=== PATIENT | female | born 1985 | race Two or more races ===

== ENCOUNTER 2024-07-28 15:30 | Emergency (ER) | payer MEDICAID, SELFPAY ==
[2024-07-28 15:42] VITALS: BP 147/92; PULSE 85; RESP 20; TEMP 37; O2SAT 98; BMI 23.8
--- NOTE | 2024-07-28 15:44 | ED.GENADULT ---
HPI - General Adult General Chief complaint: Headache Stated complaint: Migraine 2 weeks Time Seen by Provider: 07/28/24 19:52 Source: patient Mode of arrival: ambulatory Limitations: no limitations History of Present Illness ED Provider: amadeo RANDALL narrative: Patient's history of migraine headache been having headache for last 2 weeks localized to the left side of the head with light sensitivity and nausea trying to take ibuprofen/Excedrin without much relief Related Data Previous Rx's ?Medication ?Instructions ?Recorded jzkftnfixh-urpitjtacrdms-qzcgcdac 1 tab PO Q6H PRN haeadace #20 tabs 07/28/24 50 mg-325 mg-40 mg tablet ondansetron 4 mg disintegrating 4 mg PO Q6-8H PRN nausea and 07/28/24 tablet vomiting #7 tabs sumatriptan succinate 50 mg tablet 50 mg PO Q2H PRN migraine headache 07/28/24 (Imitrex) #10 tabs Allergies Allergy/AdvReac Type Severity Reaction Status Date / Time No Known Allergies Allergy Unverified 07/28/24 15:46 Review of Systems Review of Systems: Yes all other systems are reviewed and are negative [facility] Social History Social History Advance Directives: No Advance Directives Information Provided: No Physical Exam ED Vital Signs: BMI result Body Mass Index 23.8 Appearance: Alert. Oriented X3. No acute distress. Eyes: PERRLA, No Nystagmus ENT: Pharynx normal. Oral Mucosa moist Neck: Normal inspection. Neck supple. CVS: Normal heart rate and rhythm. Pulses normal. Respiratory: No respiratory distress. Equal air entry bilateral, no wheezing/rales/rhonchi Abdomen: Soft and nontender. Bowel sounds are present, no mass palpable, no CVA tenderness Skin: Skin warm and dry. Normal skin color. Normal skin turgor. Extremities: No lower extremity edema. No calf tenderness Neuro: Oriented X 3. No motor deficit. No sensory deficit.No cerebellar signs , cranial nerves II-XII intact Course Course Course Narrative: This is a rapid medical exam performed by Gilberto Paz NP: Additional HPI, ROS, PE not included below will be deferred to primary provider. Patient is a 38-year-old female presenting with headache for the past 2 weeks as well as left ear pain. This morning developed left sided facial pain. Went to urgent care but was not prescribed any medications. Plan: strep and viral serology Medications Administered Discontinued Medications Generic Name Dose Route Start Last Admin Trade Name Nitin PRN Reason Stop Dose Admin Acetaminophen/Butalbital/Caffeine 1 tab 07/28/24 20:09 07/28/24 20:23 Butalb/Acetamin/Caff 50/325/40 Tablet PO 07/28/24 20:10 1 tab ONCE ONE Administration Ketorolac Tromethamine 60 mg 07/28/24 21:43 07/28/24 21:47 Ketorolac Tromethamine 60 Mg/2 Ml Vial IM 07/28/24 21:44 60 mg ONCE ONE Administration Ondansetron HCl 4 mg 07/28/24 20:09 07/28/24 20:23 Ondansetron Odt 4 Mg Tab.Rapdis TRANSLINGU 07/28/24 20:10 4 mg ONCE ONE Administration Sumatriptan Succinate 6 mg 07/28/24 20:09 07/28/24 20:23 Sumatriptan Succinate 6 Mg/0.5 Ml Vial SUBCUT 07/28/24 20:10 6 mg ONCE ONE Administration Medical Decision Making Medical Decision Making MDM Narrative: Patient's migraine headache will prescribe Fioricet and Imitrex Lab Data Labs: Lab Results 07/28/24 Range/Units 16:32 Influenza Type A (PCR) NEGATIVE (Negative) Influenza Type B (PCR) NEGATIVE (Negative) RSV RNA Qual (PCR) NEGATIVE (Negative) SARS-CoV-2 RNA (RT-PCR) NEGATIVE (Negative) S. pyogenes GrpA NORM Invalid (Negative) Discharge Plan Discharge Clinical Impression: Migraine Patient Disposition: Home, Self-Care Instructions: Migraine Headache (ED) Additional Instructions: Rest at home Take 1 tablet of Imitrex at the onset of headache and may repeat in 2 hours if headache persists can not take more than 2 tablets in 24 hours Fioricet 1 tablet every 6 hours as needed Zofran for nausea Follow with your PCP Prescriptions: New sumatriptan succinate [Imitrex] 50 mg tablet 50 mg PO Q2H PRN (Reason: migraine headache) Qty: 10 0RF Rx Instructions: do not exceed 2 doses per 24 hrs houocuksok-vlwrvhxnulafb-fiup 50-325-40 mg tablet 1 tab PO Q6H PRN (Reason: haeadace) Qty: 20 0RF ondansetron 4 mg tablet,disintegrating 4 mg PO Q6-8H PRN (Reason: nausea and vomiting) Qty: 7 0RF Interventions: ED Discharge Assessment Last Done: 07/28/24 22:21 Discharge Date/Time: 07/28/24 22:22 Print Language: Turkmen
[2024-07-28 16:47] LABS: IDNOW Serial# 6674DD1D; Strep A Nucleic Acid Invalid (Negative)
[2024-07-28 17:20] LABS: Influenza A PCR NEGATIVE (Negative); Influenza B PCR NEGATIVE (Negative); Resp Syncy Virus RNA Qual PCR NEGATIVE (Negative); SARS COV2 PCR INHOUSE NEGATIVE (Negative)
[2024-07-28 19:18] VITALS: BP 123/65; PULSE 68; RESP 16; TEMP 36.7; O2SAT 98
[2024-07-28] MEDS: Ondansetron ODT 4 MG TAB.RAPDIS TRANSLINGU (20:23)
[2024-07-28] MEDS: Butalb/Acetamin/Caff 50/325/40 TABLET 1 TAB PO (20:23)
[2024-07-28] MEDS: SUMAtriptan succinate 6 MG/0.5 ML VIAL SUBCUT (20:23)
[2024-07-28 20:32] VITALS: BP 120/62; PULSE 62; RESP 16; TEMP 36.6; O2SAT 98
--- NOTE | 2024-07-28 21:34 | PC.NURSE ---
pt sts she is still in pain stated if she is going to be here in pain (she) would like to go home notified via [employer]
[2024-07-28] MEDS: Ketorolac Tromethamine 60 MG/2 ML VIAL IM (21:47)
[2024-07-28 22:21] VITALS: BP 120/62; PULSE 62; RESP 16; TEMP 36.6; O2SAT 98
--- NOTE | 2024-07-28 22:21 | PC.NURSE ---
pt medicated per mar
== END 2024-07-28 22:22 | disposition home or self-care (01) ==
PROVIDERS: Registered Nurse Emergency; Emergency Provider Internal Medicine
DX: G43.909 Migraine, unspecified, not intractable, without status migrainosus (principal); H92.02 Otalgia, left ear; R11.0 Nausea; Z03.818 Encounter for observation for suspected exposure to other biological agents ruled out; Z79.899 Other long term (current) drug therapy
CPT/HCPCS: 0241U; 87651; 96372; 99283; 99284; J1885; J3030